=== PATIENT | female | born 1960 | race Caucasian/White ===

== ENCOUNTER 2017-02-14 09:40 | Emergency (ER) | payer BC ==
--- NOTE | 2017-02-14 10:03 | Emergency Department Record ---
History of Present Illness - General Chief Complaint: Numbness Stated Complaint: NUMBNESS/TINKLING Time Seen by Provider: 02/14/17 09:51 Source: Patient, Family Mode of Arrival: EMS Limitations: No limitations - History of Present Illness Initial Comments: 57 yo female presents with symptoms for two days. The onset was after getting bad news that her job was being eliminated at work. She states when she was told this news she became flushed, she developed numbness and tingling of the bilateral face that encircles the mouth and mid face, both arms, and hands including fingers of both hands and her legs. She went home to rest. The symptoms mostly subsided. She felt an increase today and called EMS. No chest pain. No vision changes. No weakness of the hands, arms, legs. No changes in coordination. No memory changes. No speech changes. She feels very anxious. She has had similar symptoms in the past. Her mother 13 years ago. The symptoms at receiving that news caused similar but much worse symptoms then and included cramps of the hands and feet. No CAD. No neurological history except migraines. No fevers or recent illness. She has had multiple stress tests in the past 10 years all normal. She saw her PCP one week ago for her routine physical. BP was 120's/80's then. PCP is Samara Daniel in [place]. She reports upon transport to the ED she is feeling much more relaxed with resolution of symptoms. Onset/Timin -: Days(s) Location: Left face History of same: Yes Place: Home Severity: Mild, Moderate Improves With: None Worsens With: None Associated Symptoms: Diaphoresis, Shortness of breath Treatments Prior to Arrival: None - [place] Coma Scale Eye Response: (4) Open spontaneously Motor Response: (6) Obeys commands Verbal Response: (5) Oriented [place] Total: 15 - Related Data Home Medications: Home Medications Medication Instructions Recorded Confirmed Last Taken Budesonide [Budesonide EC] 3 mg PO QHS 04/10/14 02/14/17 02/13/17 Fluticasone Propionate [Flovent 50 mcg IH ASDIR 02/14/17 02/14/17 02/14/17 Diskus] Allergies/Adverse Reactions: Allergies Allergy/AdvReac Type Severity Reaction Status Date / Time No Known Drug Allergies Allergy Verified 05/31/14 18:52 Travel Screening - Travel/Exposure Within Last 30 Days Have you traveled within the last 30 days?: No - Travel/Exposure Within Last Year Have you traveled outside the [place] in the last year?: No - Additonal Travel Details Have you been exposed to anyone with a communicable illness?: No - Travel Symptoms Symptom Screening: None Review of Systems Constitutional: Denies: Chills, Fever, Malaise, Weakness Eyes: Denies: Eye discharge, Eye pain, Photophobia, Vision change ENT: Denies: Congestion, Ear pain, Epistaxis, Throat pain Respiratory: Denies: Cough, Dyspnea, Hemoptysis, Stridor, Wheezes Cardiovascular: Reports: Palpitations. Denies: Arrhythmia, Chest pain, Dyspnea on exertion, Edema, Syncope Endocrine: Denies: Fatigue, Polydipsia, Polyuria Gastrointestinal: Denies: Abdominal pain, Diarrhea, Nausea, Vomiting Genitourinary: Denies: Dysuria, Hematuria, Urgency Musculoskeletal: Denies: Arthralgia, Back pain, Joint swelling, Myalgia, Neck pain Skin: Denies: Bruising, Change in color, Rash Neurological: Reports: As per HPI, Headache (migraines), Numbness, Paresthesias , Tingling. Denies: Abnormal gait, Confusion, Seizure, Vertigo, Weakness Psychiatric: Reports: Anxiety Hematological/Lymphatic: Denies: Anemia, Easy bleeding, Easy bruising, Swollen glands Past Medical History - SOCIAL HISTORY Smoking Status: Former smoker Alcohol Use: None Drug Use: None - RESPIRATORY Hx Respiratory Disorders: Yes Hx Asthma: Yes - CARDIOVASCULAR Hx Cardio Disorders: No - NEURO Hx Neuro Disorders: No - GI Hx GI Disorders: Yes Hx Hepatitis/Jaundice: Yes - Hx Genitourinary Disorders: No - ENDOCRINE Hx Endocrine Disorders: No - MUSCULOSKELETAL Hx Musculoskeletal Disorders: No - PSYCH Hx Psych Problems: No - HEMATOLOGY/ONCOLOGY Hx Hematology/Oncology Disorders: No Family Medical History Any Significant Family History?: No Hx HTN: Grandparents Physical Exam - General General Appearance: Alert, Oriented x3, Cooperative, No acute distress, Other ( Calm, No distress at this time) Limitations: No limitations - Head Head exam: Atraumatic, Normocephalic, Normal inspection - Eye Eye exam: Normal appearance, PERRL, EOMI. negative: Conjunctival injection, Nystagmus, Periorbital swelling, Periorbital tenderness - ENT ENT exam: Normal exam, Mucous membranes moist, Normal orophraynx Ear exam: Normal external inspection. negative: External canal tenderness Nasal Exam: Normal inspection. negative: Discharge, Sinus tenderness Mouth exam: Normal external inspection, Tongue normal Teeth exam: Normal inspection. negative: Dental caries Throat exam: Normal inspection. negative: Tonsillar erythema, Tonsillomegaly, Tonsillar exudate - Neck Neck exam: Normal inspection, Full ROM. negative: Lymphadenopathy, Tenderness, Thyromegaly - Respiratory Respiratory exam: Normal lung sounds bilaterally. negative: Prolonged expiratory, Respiratory distress, Rhonchi, Stridor, Wheezes - Cardiovascular Cardiovascular Exam: Regular rate, Normal rhythm, Normal heart sounds Peripheral Pulses: 2+: Radial (R), Radial (L) - GI/Abdominal GI/Abdominal exam: Soft. negative: Distended, Tenderness - Rectal Rectal exam: Deferred - exam: Deferred - Extremities Extremities exam: Normal inspection, Full ROM, Normal capillary refill. negative: Pedal edema, Tenderness - Back Back exam: Reports: Normal inspection, Full ROM. Denies: CVA tenderness (R), CVA tenderness (L), Muscle spasm, Paraspinal tenderness, Rash noted, Tenderness , Vertebral tenderness - Neurological Neurological exam: Alert, CN II-XII intact, Normal gait, Oriented X3, Reflexes normal, Other (No PND, Normal FTN, Normal JOSE, No reproducible weakness, or sensory changes on the arms, hands, face.). negative: Altered, Motor sensory deficit - Psychiatric Psychiatric exam: Normal affect, Normal mood - Skin Skin exam: Dry, Intact, Normal color, Warm Course Vital Signs 02/14/17 09:44 Temperature 97.7 F Pulse Rate 86 Respiratory 20 Rate Blood Pressure 186/144 Pulse Ox 100 - Reevaluation(s) Reevaluation #1: EMR reviewed. No prior records except one ED visit for eye irritation. EKG 09:44 NSR rate of 83, intervals normal, axis normal, ST no acute changes. No old. Requests made for most recent EKG form PCP, and prior stress test and EKG form [facility]. 02/14/17 10:14 The EKG from her PCP was reviewed. It was performed on 01/28/17. No change on today's ekg with comparison. Waiting for prior stress test from [facility]. 02/14/17 10:17 02/14/17 10:36 Reevaluation #2: BR recheck remains elevated 170's/100's. Clonidine ordered. The labs were reviewed. No acute changes of the CBC or BMP with normal CR and GFR AST 127, ALT 152, alkPhos 161 TBili 0.72 TSH and HCT pending. UA is negative for acute changes and negative for protein. 02/14/17 10:56 Reevaluation #3: TSH normal at 2.33. 161/[address] Daniel's office was called. She is not available until noon. I will contact her at that time to discuss her patient's ED visit. 02/14/17 11:21 - Consultations Consultation #1: 11:10am The patient is doing well. Her is in the ED and was interviewed as well. He states her BP often elevates with stress such as when she goes to [facility]. He states BP can elevate to 160-170 systolic but is usually normal with PCP where she is less anxious. Consultation #2: 11:48am I SW Dr daniel the patient's PCP. We discussed the two days of symptoms , testing results, and BP. She will seen the patient at 11am tomorrow for a BP recheck. Medical Decision Making - Lab Data Result diagrams: 02/14/17 10:32 02/14/17 10:32 Disposition Disposition: Discharge Clinical Impression: Flushing Hand paresthesia Qualifiers: Laterality: bilateral Qualified Code(s): R20.2 - Paresthesia of skin Disposition: Home, Self-Care Condition: (1) Good Instructions: Paresthesia (ED) Additional Instructions: Return immediately if you have any return of symptoms or any new concerns or symptoms such as vision changes, weakness, speech changes, dizzy You are to see Dr Daniel at 11am tomorrow for a blood pressure check and review this ER visit. Forms: Patient Portal Access Time of Disposition: 11:50
[2017-02-14 10:39] LABS: BASO % 0.2 % (0-6); EOS % 0.7 % (0-6); GRAN % 57.8 % (47-80); HEMATOCRIT 45.9 % (35.0-47.0); HEMOGLOBIN 14.8 gm/dl (11.6-16.0); LYMPH % 29.3 % (16-45); MEAN CELL VOLUME 88.3 fl (81-97); MEAN CORPUSCULAR HEMOGLOBIN 28.5 pg (27-33); MEAN CORPUSCULAR HGB CONC 32.2 g/dl (32-36); MEAN PLATELET VOLUME 10.7 fl (7.4-10.4); PLATELET COUNT 198 K/uL (130-400); RED CELL DISTRIBUTION WIDTH 14.4 % (11.5-14.5); WHITE BLOOD COUNT W/O DIFF 4.5 K/uL (4.2-12.2)
[2017-02-14 10:45] LABS: URINE APPEARANCE CLEAR; URINE BILIRUBIN NEGATIVE (NEGATIVE); URINE BLOOD NEGATIVE (NEGATIVE); URINE COLOR YELLOW; URINE GLUCOSE (UA) NEGATIVE (NEGATIVE); URINE KETONE NEGATIVE (NEGATIVE); URINE LEUKOCYTE ESTERASE NEGATIVE (NEGATIVE); URINE NITRITE NEGATIVE (NEGATIVE); URINE PROTEIN NEGATIVE (NEGATIVE); URINE UROBILINOGEN 0.2 E.U./dL (0.20 - 1.00)
[2017-02-14 10:50] LABS: ALBUMIN 4.8 gm/dL (3.5-5.0); ALKALINE PHOSPHATASE 161 U/L (38-126); ALT/SGPT 152 U/L (9-52); ANION GAP 11.6 (7-16); AST/SGOT 127 U/L (14-36); BILIRUBIN,TOTAL 0.72 mg/dL (0.2-1.3); BLOOD UREA NITROGEN 12 mg/dL (7-17); CARBON DIOXIDE 25.4 mmol/L (22-30); CREATININE 0.5 mg/dL (0.52-1.04); EST GLOMERULAR FILTRATION RATE > 60 ml/min; GLUCOSE,RANDOM 94 mg/dL (70-110); TOTAL PROTEIN 9.5 gm/dL (6.3-8.2)
[2017-02-14] MEDS ORDERED: CLONIDINE HCL 0.1 MG TABLET PO ONE (10:51)
[2017-02-14 11:05] LABS: TROPONIN I < 0.012 ng/mL (0.00-0.034)
== END 2017-02-14 12:15 | disposition home or self-care (01) ==
LOC: ER 09:40
DX: R23.2 Flushing (principal); R20.2 Paresthesia of skin; R06.02 Shortness of breath; R03.0 Elevated blood-pressure reading, without diagnosis of hypertension
CPT/HCPCS: 70450; 80053; 81003; 83735; 84443; 84484; 85025; 93005; 93010; 99284